=== PATIENT | male | born 1985 | race Caucasian/White ===

== ENCOUNTER 2017-12-26 19:43 | Emergency (ER) | payer OTHER ==
[~2017-12-26] VITALS: Ht 182.9 cm; Wt 90.7 kg
[2017-12-26 19:52] VITALS: TEMP 36.6; Ht 182.9 cm; Wt 90.7 kg
[2017-12-26] MEDS ORDERED: CPR/500 PO (20:04)
[2017-12-26] MEDS ORDERED: MoRPHine SULFATE 4 MG/ML 1 ML CARP\\VIAL IV STA (20:04)
[2017-12-26] MEDS ORDERED: MTR500 PO (20:04)
[2017-12-26] MEDS ORDERED: ONDANSETRON INJ 2 MG/ML 2 ML VIAL IV STA (20:04)
[2017-12-26] MEDS ORDERED: SODIUM CHLORIDE 0.9% 1000ML 1,000 ML IV STA (20:04)
[2017-12-26 20:18] LABS: BASO % 0.3 %; BASO ABS # 0.02 K/uL (0-0.2); EOS % 3.6 %; EOS ABS # 0.27 K/uL (0-0.5); HEMATOCRIT 38.1 % (42-52); HEMOGLOBIN 13.1 g/dL (14.0-18.0); IG# 0.01 K/uL (0.00-0.02); LYMPH % 40.3 %; LYMPH ABS # 2.99 K/uL (1.2-3.4); MEAN CELL VOLUME 88.6 fL (80-100); MEAN CORPUSCULAR HEMOGLOBIN 30.5 pg (25-34); MEAN CORPUSCULAR HGB CONC 34.4 g/dl (32-36); MEAN PLATELET VOLUME 10.3 fL (7.4-10.4); MONO % 6.9 %; MONO ABS # 0.51 K/uL (0.11-0.59); NEUT % 48.8 %; NEUT ABS # 3.62 K/uL (1.4-6.5); PLATELET COUNT 244 K/uL (130-400); RED CELL DISTRIBUTION WIDTH CV 13.5 % (11.5-14.5); RED CELL DISTRIBUTION WIDTH SD 43.8 fL (36.4-46.3); WHITE BLOOD COUNT 7.42 K/uL (4.8-10.8)
[2017-12-26] MEDS ORDERED: OPTIRAY 320 IV PRN (20:30)
[2017-12-26 20:36] LABS: ALBUMIN 3.3 gm/dl (3.4-5.0); CREATININE 0.92 mg/dl (0.60-1.40); POTASSIUM 3.5 mmol/L (3.5-5.1)
[2017-12-26 20:39] LABS: TOTAL PROTEIN 6.9 gm/dl (6.4-8.2)
--- NOTE | 2017-12-26 21:32 | DIAGNOSTIC IMAGING REPORT ---
CHEST AND ABDOMEN 2 VIEWS HISTORY: Bowel generalized abdominal pain, nausea, no BM. Emesis COMPARISON: Chest and abdominal series 08/20/2008. Abdomen and pelvis CT 09/11/2015. FINDINGS: The lungs are clear. The cardiomediastinal silhouette is within normal limits. There is no pneumoperitoneum or pneumatosis. The bowel gas pattern is unremarkable. No evidence for bowel obstruction. No pathologic calcifications. There is oral contrast within the small bowel. Multiple pelvic phleboliths are noted. Small amount of stool seen throughout the colon. IMPRESSION: No acute cardiopulmonary process. No evidence for bowel obstruction. Electronically signed by: Shemar Cotton M.D. 12/26/2017 9:31 PM Dictated Date/Time: 12/26/2017 9:29 PM
[2017-12-26] MEDS ORDERED: OXYCODONE IR HOME PACK PO STA (23:49)
[2017-12-26] MEDS ORDERED: OXYC1TAB3 PO (23:52)
--- NOTE | 2017-12-26 23:53 | EMERGENCY ROOM VISIT NOTE ---
History First contact with patient: 19:55 Chief Complaint: CONSTIPATION Stated Complaint: CANNOT MOVE BOWELS (5 DAYS), VOMITING, PAIN Nursing Triage Summary: Pt reports small liquid bowel movements for past few days. Last normal bowel movement was Wednesday. Pt reports that he has taken laxatives with no results. Pt was seen on at [facility] and had a CT. Pt was diagnosed with diverticulitis and given Cipro and Flagyl. Pt reports pain all throughout the abdomen. Hx IBS. N/V since Wednesday. History of Present Illness The patient is a 32 year old male who presents to the Emergency Room via private vehicle with complaints of "cannot move bowels 5 days, vomiting, pain" . The patient states that he has not had a bowel movement in 5 days. His last normal bowel movement was on this past Wednesday. He began then with generalized abdominal pain. He was then seen this past at [facility] and notes that he did have a CT scan performed of his abdomen and. He states that it revealed diverticulitis. He was sent home on Cipro and Flagyl. He has been taking stool softeners. He is concerned because he notes no solid bowel movement 5 days. He does note however that he has had liquid stool last being this morning. He rates the overall abdominal pain as a 5-6/10. He notes no history of diverticulitis. He is concerned because his abdominal pain is worse compared to when he was seen on . He notes he has vomiting but is able to keep down the medication when he takes it. He is still eating and notes a healthy appetite. Review of Systems A complete 10-point Review of Systems was discussed with the patient, with pertinent positives and negatives listed in the History of Present Illness. All remaining Review of Systems questions can be considered negative unless otherwise specified. Past Medical/Surgical History Medical Problems: (1) IBS (irritable bowel syndrome) Surgical Problems: (1) History of appendectomy (2) History of inguinal hernia repair, bilateral Social History Smoking Status: Former Smoker Occupation Status: employed Current/Historical Medications Scheduled Ciprofloxacin (Ciprofloxacin HCl), 500 MG PO Q12 Metronidazole (Metronidazole), 500 MG PO QID Scheduled PRN Oxycodone Ir (Roxicodone Ir), 1-2 TAB PO Q4H PRN for Pain Physical Exam Vital Signs Date Time Temp Pulse Resp B/P (MAP) Pulse Ox O2 Delivery O2 Flow Rate FiO2 12/27/17 00:04 73 20 125/79 96 12/26/17 21:49 58 19 120/84 97 Room Air 12/26/17 20:11 Room Air 12/26/17 19:52 36.6 84 16 128/77 97 Room Air Physical Exam VITAL SIGNS - Vital signs and nursing notes were reviewed. Stable. Afebrile. GENERAL -32-year-old male appearing his stated age who is in no acute distress. Communicates well with provider and answers questions appropriately. SKIN - Without rashes. No meningeal or petechial rash. HEAD - NC/AT. EYES - Sclera anicteric. EARS - No deformities of external structures noted on gross examination bilaterally. NOSE - Midline and without cyanosis. No epistaxis or purulent drainage noted. MOUTH/OROPHARYNX - Without perioral cyanosis. Buccal mucosa pink and moist and without leukoplakia. LUNGS - Chest wall symmetric without accessory muscle use, intercostals retractions, or central cyanosis. Normal vesicular breath sounds CTA B/L. No wheezes, rales, or rhonchi appreciated. CARDIAC - RRR with S1/S2. No murmur, rubs, or gallops appreciated. ABDOMEN - Abdominal contour normal without pulsations or visible masses. BS normoactive all four quadrants and perhaps slightly hyperactive. Generalized abdominal tenderness worse in the lower quadrants. No palpable masses, hepatosplenomegaly, or ascites noted. EXTREMITIES - No clubbing or peripheral cyanosis. No pretibial edema present. + 5/5 strength noted in UE/LE bilaterally. NEUROLOGIC - Cranial nerves II through XII grossly intact. Sensory intact to light touch throughout. PSYCH - A&O, and cooperates fully with examiner. Pt is very pleasant and interacts well with examiner. Medical Decision & Procedures ER Provider Diagnostic Interpretation: CHEST AND ABDOMEN 2 VIEWS HISTORY: Bowel generalized abdominal pain, nausea, no BM. Emesis COMPARISON: Chest and abdominal series 08/20/2008. Abdomen and pelvis CT 09/11/2015. FINDINGS: The lungs are clear. The cardiomediastinal silhouette is within normal limits. There is no pneumoperitoneum or pneumatosis. The bowel gas pattern is unremarkable. No evidence for bowel obstruction. No pathologic calcifications. There is oral contrast within the small bowel. Multiple pelvic phleboliths are noted. Small amount of stool seen throughout the colon. IMPRESSION: No acute cardiopulmonary process. No evidence for bowel obstruction. Electronically signed by: Shemar Cotton M.D. 12/26/2017 9:31 PM Dictated Date/Time: 12/26/2017 9:29 PM [~ rep ct add3]] ABDOMEN AND PELVIS CT WITH IV AND ORAL CONTRAST CT DOSE: 422.27 mGy.cm HISTORY: Acute generalized abdominal pain with constipation Abd pain, no bm in 5 days, ?Diverticulitis TECHNIQUE: Multiaxial CT images of the abdomen and pelvis were performed following the use of intravenous and oral contrast. A dose lowering technique was utilized adhering to the principles of ALARA. COMPARISON STUDY: CT abdomen and pelvis 09/11/2015 FINDINGS: Mild dependent subsegmental bibasilar atelectasis. No pneumatosis or pneumoperitoneum identified. Imaged inferior cardiac chambers are unremarkable. Circumscribed low attenuating 1.5 cm lesion of the left hepatic lobe is redemonstrated on image 22 of series 2 which appears unchanged suggesting hepatic cyst or hemangioma. No intrahepatic biliary ductal dilation. Spleen, pancreas and adrenal glands are within normal limits. The kidneys, ureters and bladder are unremarkable. Phleboliths of the pelvis. Aorta and IVC appear unremarkable. No bulky adenopathy. No bowel obstruction. There is moderate wall thickening about the mid sigmoid colon with mild pericolonic inflammatory stranding. Findings are centered about an inflamed diverticulum seen on image 394 series 3. Mild colonic diverticulosis. No evidence of drainable fluid collection or perforation. Prior bilateral inguinal hernia repair. The appendix is not definitively seen. No secondary signs of acute appendicitis. Soft tissues are unremarkable. Bones appear intact. IMPRESSION: 1. Findings compatible with acute uncomplicated sigmoid diverticulitis without evidence of perforation or drainable fluid collection. 2. No bowel obstruction. 3. Prior bilateral inguinal hernia repair. Electronically signed by: Robert Mac M.D. 12/27/2017 7:01 AM Dictated Date/Time: 12/27/2017 6:56 AM Laboratory Results 12/26/17 20:10 Red Blood Count 4.30, Mean Corpuscular Volume 88.6, Mean Corpuscular Hemoglobin 30.5, Mean Corpuscular Hemoglobin Concent 34.4, Mean Platelet Volume 10.3, Neutrophils (%) (Auto) 48.8, Lymphocytes (%) (Auto) 40.3, Monocytes (%) (Auto) 6.9, Eosinophils (%) (Auto) 3.6, Basophils (%) (Auto) 0.3, Neutrophils # (Auto) 3.62, Lymphocytes # (Auto) 2.99, Monocytes # (Auto) 0.51, Eosinophils # (Auto) 0.27, Basophils # (Auto) 0.02 12/26/17 20:10 Test 12/26/17 00:00 12/26/17 20:10 Urine Color YELLOW Urine Appearance ERROR (CLEAR) Urine pH 8.5 (4.5-7.5) Urine Specific [place] 1.013 (1.000-1.030) Urine Protein NEG (NEG) Urine Glucose (UA) NEG (NEG) Urine Ketones NEG (NEG) Urine Occult Blood NEG (NEG) Urine Nitrite NEG (NEG) Urine Bilirubin NEG (NEG) Urine Urobilinogen NEG (NEG) Urine Leukocyte Esterase TRACE (NEG) Urine WBC (Auto) 1-5 /hpf (0-5) Urine RBC (Auto) 0-4 /hpf (0-4) Urine Hyaline Casts (Auto) 0 /lpf (0-5) Urine Epithelial Cells (Auto) 10-20 /lpf (0-5) Urine Bacteria (Auto) NEG (NEG) White Blood Count 7.42 K/uL (4.8-10.8) Red Blood Count 4.30 M/uL (4.7-6.1) Hemoglobin 13.1 g/dL (14.0-18.0) Hematocrit 38.1 % (42-52) Mean Corpuscular Volume 88.6 fL (80-100) Mean Corpuscular Hemoglobin 30.5 pg (25-34) Mean Corpuscular Hemoglobin Concent 34.4 g/dl (32-36) Platelet Count 244 K/uL (130-400) Mean Platelet Volume 10.3 fL (7.4-10.4) Neutrophils (%) (Auto) 48.8 % Lymphocytes (%) (Auto) 40.3 % Monocytes (%) (Auto) 6.9 % Eosinophils (%) (Auto) 3.6 % Basophils (%) (Auto) 0.3 % Neutrophils # (Auto) 3.62 K/uL (1.4-6.5) Lymphocytes # (Auto) 2.99 K/uL (1.2-3.4) Monocytes # (Auto) 0.51 K/uL (0.11-0.59) Eosinophils # (Auto) 0.27 K/uL (0-0.5) Basophils # (Auto) 0.02 K/uL (0-0.2) RDW Standard Deviation 43.8 fL (36.4-46.3) RDW Coefficient of Variation 13.5 % (11.5-14.5) Immature Granulocyte % (Auto) 0.1 % Immature Granulocyte # (Auto) 0.01 K/uL (0.00-0.02) Anion Gap 7.0 mmol/L (3-11) Est Creatinine Clear Calc Drug Dose 125.4 ml/min Estimated GFR () 126.2 Estimated GFR (Non- 108.9 BUN/Creatinine Ratio 9.3 (10-20) Calcium Level 8.0 mg/dl (8.5-10.1) Magnesium Level 2.0 mg/dl (1.8-2.4) Total Bilirubin 0.2 mg/dl (0.2-1) Aspartate Amino Transf (AST/SGOT) 23 U/L (15-37) Alanine Aminotransferase (ALT/SGPT) 28 U/L (12-78) Alkaline Phosphatase 75 U/L (45-117) Total Protein 6.9 gm/dl (6.4-8.2) Albumin 3.3 gm/dl (3.4-5.0) Globulin 3.6 gm/dl (2.5-4.0) Albumin/Globulin Ratio 0.9 (0.9-2) Medications Administered Medications (Trade) Dose Ordered Sig/Ajay Route Start Time Stop Time Status Last Admin Dose Admin Sodium Chloride 1,000 ml @ 999 mls/hr Q1H1M STAT IV 12/26/17 20:04 12/26/17 21:04 DC 12/26/17 20:17 999 MLS/HR Ondansetron HCl (Zofran Inj) 4 mg NOW STAT IV 12/26/17 20:04 12/26/17 20:07 DC 12/26/17 20:17 4 MG Morphine Sulfate (MoRPHine SULFATE INJ) 4 mg NOW STAT IV 12/26/17 20:04 12/26/17 20:07 DC 12/26/17 20:17 4 MG Oxycodone HCl (Roxicodone Immediate Rel 5MG Home Pack) 1 [facility] UD STAT PO 12/26/17 23:49 12/26/17 23:50 DC 12/26/17 23:59 1 [facility] Medical Decision Patient was seen and evaluated as above in room A3. Review was performed of nursing notes and vital signs. After obtaining a thorough history and physical examination the above work up was performed. He presents to us today with abdominal pain with a prior diagnosis of diverticulitis this past . After obtaining patient's permission I did obtain a CT scan that the patient had performed this past . There was a CT scan of the abdomen and pelvis without IV or oral contrast and [facility]. It noted diverticulitis. The patient is here today concerned that this could be an incorrect diagnosis noting that he believes he may have an obstruction because he has not had a bowel movement 5 days. It is important to note/clarify that he has had bowel movements they have just been liquid in nature. He feels that for the food that he is eating it is not correlating with the amount of stool being expelled. I did offer him baseline labs as well as obtained a plain x-ray. There is very little stool seen and no evidence of obstruction. There is no concerning leukocytosis however small anemia noted. No emergent metabolic abnormality with the kidney or liver. His calcium is low. He was educated upon this. After thoroughly discussing benefit versus risk of obtaining a CT scan, and utilizing shared decision making it was decided to obtain a CT scan with IV and oral contrast of the abdomen and pelvis. Results as above. Essentially there is redemonstration/potential improvement of his diverticulitis. I question if perhaps some of his symptoms today are from that of the stool softener use and antibiotics. I discussed with him inpatient versus outpatient management of this and he prefers to go home continuing the Cipro and Flagyl of which she was previously given. I did verify these personally to ensure that it was Cipro and Flagyl. He notes that he will follow with the family doctor or return with worsening. He will be given a short prescription of pain medication. There were no red flags identified in the [place] drug monitoring system. This will be oxycodone immediate release. He was educated upon risks and use of this medication. While here in the emergency department he was treated with fluids, antinausea meds as well as pain medicine. The patient was educated upon management, had questions answered prior to discharge, and was discharged home in good condition. Case was discussed with the attending physician. In the evaluation and treatment of this patient the following differential diagnoses were entertained: Diverticulitis, pancreatitis, appendicitis, obstruction, colonic mass, hernia, UTI, among others. Impression Primary Impression: Diverticulitis Additional Impressions: Anemia Hypocalcemia Departure Information Dispostion Home / Self-Care Condition GOOD Prescriptions Oxycodone Ir (Roxicodone Ir) 5 Mg Tab 1-2 TAB PO Q4H Y for Pain, #15 TAB For Initial Treatment Prov: Hossein Martinez PA-C 12/26/17 Referrals Vandana Campo C.R.N.P. (PCP) Patient Instructions Diverticulitis Dc, ED Diet [place], ED Hypocalcemia, [facility] Additional Instructions You have been treated in the Emergency Department your Abdominal Pain. You have diverticulitis. Please refer to attached sheets regarding diverticulitis as well as a bland diet recommendation. There is also a sheet regarding how to improve your low calcium. Please continue the Cipro and Flagyl. You have been prescribed OxyIR to be used for pain control. This is a narcotic medication. You cannot drive or consume alcohol while on this medicine. This medicine should only be used for pain that cannot be controlled with over-the- counter pain medicines. For pain control, you can use the following [id number] medicines (if >12 yo): - Regular strength (325mg/tab) Tylenol (acetaminophen) 2 tabs every 4-6 hours as needed. Do not exceed 12 tablets in a 24 hour period. Avoid taking more than 3 grams (3000 mg) of Tylenol per day. This includes any other sources of acetaminophen you may take on a regular basis. - Regular strength (200 mg/tab) Advil (ibuprofen) 1-2 tabs every 4-6 hours as needed. Do not exceed a dose of 3200 mg per day. Drink plenty of water and stay well hydrated. As with any trip to the Emergency Department, you should follow-up with your Primary Care Provider from today's visit. Return to the emergency department if your symptoms persist despite treatment plan outlined above or if the following symptoms occur: increased fevers, chills , worsening nausea/vomiting, blood in your stool or urine. Problem Qualifiers
[2017-12-27 00:04] VITALS: BP 125/79; PULSE 73; O2SAT 96
--- NOTE | 2017-12-27 07:02 | DIAGNOSTIC IMAGING REPORT ---
ABDOMEN AND PELVIS CT WITH IV AND ORAL CONTRAST CT DOSE: 422.27 mGy.cm HISTORY: Acute generalized abdominal pain with constipation Abd pain, no bm in 5 days, ?Diverticulitis TECHNIQUE: Multiaxial CT images of the abdomen and pelvis were performed following the use of intravenous and oral contrast. A dose lowering technique was utilized adhering to the principles of ALARA. COMPARISON STUDY: CT abdomen and pelvis 09/11/2015 FINDINGS: Mild dependent subsegmental bibasilar atelectasis. No pneumatosis or pneumoperitoneum identified. Imaged inferior cardiac chambers are unremarkable. Circumscribed low attenuating 1.5 cm lesion of the left hepatic lobe is redemonstrated on image 22 of series 2 which appears unchanged suggesting hepatic cyst or hemangioma. No intrahepatic biliary ductal dilation. Spleen, pancreas and adrenal glands are within normal limits. The kidneys, ureters and bladder are unremarkable. Phleboliths of the pelvis. Aorta and IVC appear unremarkable. No bulky adenopathy. No bowel obstruction. There is moderate wall thickening about the mid sigmoid colon with mild pericolonic inflammatory stranding. Findings are centered about an inflamed diverticulum seen on image 394 series 3. Mild colonic diverticulosis. No evidence of drainable fluid collection or perforation. Prior bilateral inguinal hernia repair. The appendix is not definitively seen. No secondary signs of acute appendicitis. Soft tissues are unremarkable. Bones appear intact. IMPRESSION: 1. Findings compatible with acute uncomplicated sigmoid diverticulitis without evidence of perforation or drainable fluid collection. 2. No bowel obstruction. 3. Prior bilateral inguinal hernia repair. Electronically signed by: Robert Mac M.D. 12/27/2017 7:01 AM Dictated Date/Time: 12/27/2017 6:56 AM
== END 2017-12-27 00:06 | disposition home or self-care (01) ==
LOC: C.EDB 19:43 → C.EDA 12-27 00:06
DX: K57.92 Diverticulitis of intestine, part unspecified, without perforation or abscess without bleeding (principal); D64.9 Anemia, unspecified; E83.51 Hypocalcemia; Z87.891 Personal history of nicotine dependence; Z90.89 Acquired absence of other organs; Z98.890 Other specified postprocedural states